=== PATIENT | male | born 1965 | race Caucasian/White ===

== ENCOUNTER 2017-06-22 14:05 | Emergency (ER) | payer SELFPAY ==
[2017-06-22 14:25] VITALS: TEMP 98.6
--- NOTE | 2017-06-22 15:14 | EDPHY ---
HPI/HX/ROS/PE/MDM Narrative: CHIEF COMPLAINT: Headache HPI: This patient is a 52 y/o male with history of hypertension, hyperlipidemia, and diabetes visiting from [facility] complaining of headache. Last Thursday, he had a headache while at work which resolved spontaneously but returned that evening and resolved after Advil. The following night, the headache returned and in the morning he noted blood in his right ear. He travelled by plane anyway and arrived Thursday night in [place]. He had a headache on the plane, relieved with Tylenol. Yesterday at 21:35 his headache returned more severely. It was primarily right sided with associated right eye pain. It felt "like something trying to break out of my head". He took Advil and paracetamol and after three hours, he was able to sleep. Today, he has had residual pulsing sensations in the right side of his head but feels well otherwise. He has never had similar headaches in the past. The patient had a fall while skiing several weeks ago, but denies any other recent trauma. He noted some visual changes following the including swimming objects but this resolved quickly. He denies numbness or tingling in his extremities. No fever, neck pain, chest pain, shortness of breath, or other associated symptoms. REVIEW OF SYSTEMS: Aside from elements discussed in the HPI, a comprehensive 10-point review of systems was reviewed and is negative. PMH: ADHD (Vyvanse) Hypertension. History of sleep apnea s/p surgical intervention. Psoriasis. Hyperlipidemia (Crestor). Diabetes (Metformin). Occasional Viagra use. FAMILY HISTORY: Brother of heart attack several years ago. 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 . Lives in [facility]. Originally [place]. PHYSICAL EXAM: General:Patient is alert, in no acute distress. ENT:Eyes are normal to inspection. Dried blood in right ear canal. TM appears intact. No pain. Neck: Normal inspection. Full range of motion. Respiratory:No respiratory distress. Breath sounds normal bilaterally. Cardiovascular: Regular rate and rhythm. Strong peripheral pulses. Normal cap refill. Abdomen:The abdomen is nontender to palpation. There are no peritoneal signs. There are normal bowel sounds. Back: Normal to inspection. No tenderness to palpation. Skin: Normal color. No rash. Warm and dry. Extremities: Normal appearance. Full range of motion. Neuro: Oriented x3. Normal motor function. Normal sensory function. ED Course: 52 y/o male presents with recurrent headaches over the past five days. He is neurologically intact on exam. Plan for CT head. IV established. Plan for labs including CBC, chemistries. Plan to administer 1L IV NS. 15:[address] Miranda, radiologist. CT head negative for acute processes. Reviewed laboratory studies. BGL mildly elevated. Patient has known DM type 2. Labs otherwise unremarkable. 16:45 Reassessed patient. I offered an MRI for further evaluation, but he declines as he is claustrophobic. He agrees to CTA. Plan to administer 30mg IV Toradol for symptom relief. 17:[address] Miranda, radiologist. CTA negative for acute processes. 17:45 Reassessed patient. Discussed imaging results. He is reassured that we do not find any acute intracranial processes on our studies today. Plan to discharge home in good condition. Follow up and return precautions discussed. He is comfortable with this plan. MDM: This patient arrives with unusual presentation of new intermittent unilateral headache with report of blood from his right ear. Ear exam reveals small clotted blood in the external auditory canal with a normal intact TM. The etiology of this and its relationship to the symptom of headache is unclear, as the patient reports no barotrauma or direct trauma, FB etc. Given normal intact TM with no blood behind it, this has to represent an external issue and I think it is likely incidental. New severe unilateral headache is obviously concerning for serious [place] [employer] process, but CTH is negative for tumor or bleed, and CTA was performed to assess for possible SAH/aneurysm. These studies are all normal. I recommended we proceed with MRI and/or LP, but patient declines both of these tests at this time. He is currently asymptomatic and has an entirely normal neuro exam. We agreed on a plan for short course of pain medication and follow-up with a neurologist when he returns home. He understands that etiology of his symptoms is unknown and we discussed strict return precautions. I considered cluster headache given unilateral nature of pain, but the timing of his headache is somewhat atypical for this disease. - Data Points Imaging Results: Imaging Impressions Head CT 06/22/17 15:14 Impression: No acute intracranial findings. If symptoms persist and clinical suspicion warrants, consider MRI. Findings discussed with Aki Mcmanus MD, on 06/22/2017 at 15:47. Head CTA 06/22/17 16:50 Impression: No acute vascular findings. Findings discussed with Aki Mcmanus M.D., on June 22, 2017 at 1736. Imaging: Discussed imaging studies w/ score caller Radiologist Laboratory Results: Laboratory Results 06/22/17 14:45 06/22/17 15:00 06/22/17 06/22/17 15:00 14:45 WBC 8.11 10^3/uL 10^3/uL (3.80-9.50) RBC 5.23 10^6/uL 10^6/uL (4.40-6.38) Hgb 16.7 g/dL g/dL (13.7-17.5) Hct 47.4 % % (40.0-51.0) MCV 90.6 fL fL (81.5-99.8) MCH 31.9 pg pg (27.9-34.1) MCHC 35.2 g/dL g/dL (32.4-36.7) RDW 12.4 % % (11.5-15.2) Plt Count 269 10^3/uL 10^3/uL (150-400) MPV 10.0 fL fL (8.7-11.7) Neut % (Auto) 65.3 % % (39.3-74.2) Lymph % (Auto) 26.5 % % (15.0-45.0) Pope % (Auto) 6.5 % % (4.5-13.0) Eos % (Auto) 0.6 % % (0.6-7.6) Baso % (Auto) 0.9 % % (0.3-1.7) Nucleat RBC Rel Count 0.0 % % (0.0-0.2) Absolute Neuts (auto) 5.29 10^3/uL 10^3/uL (1.70-6.50) Absolute Lymphs (auto) 2.15 10^3/uL 10^3/uL (1.00-3.00) Absolute Monos (auto) 0.53 10^3/uL 10^3/uL (0.30-0.80) Absolute Eos (auto) 0.05 10^3/uL 10^3/uL (0.03-0.40) Absolute Basos (auto) 0.07 10^3/uL 10^3/uL (0.02-0.10) Absolute Nucleated RBC 0.00 10^3/uL 10^3/uL (0-0.01) Immature Gran % 0.2 % % (0.0-1.1) Immature Gran # 0.02 10^3/uL 10^3/uL (0.00-0.10) Sodium 141 mEq/L mEq/L (135-145) Potassium 3.7 mEq/L mEq/L (3.5-5.2) Chloride 100 mEq/L mEq/L (97-110) Carbon Dioxide 29 mEq/l mEq/l (22-31) Anion Gap 12 mEq/L mEq/L (8-16) BUN 17 mg/dL mg/dL (7-23) Creatinine 0.9 mg/dL mg/dL (0.7-1.3) Estimated GFR > 60 Glucose 146 mg/dL H mg/dL (70-100) Calcium 9.5 mg/dL mg/dL (8.5-10.4) Medications Given: Discontinued Medications Sodium Chloride (Ns) 1,000 mls @ 0 mls/hr IV ONCE ONE PRN Reason: Wide Open Stop: 06/22/17 15:50 Last Admin: 06/22/17 15:49 Dose: 1,000 mls Ketorolac Tromethamine (Toradol) 30 mg IVP EDNOW ONE Stop: 06/22/17 16:52 Last Admin: 06/22/17 17:00 Dose: 30 mg Oxycodone/Acetaminophen (Percocet 5/325mg Prepack#4) 1 btl TAKEHOME EDNOW ONE Stop: 06/22/17 17:50 Last Admin: 06/22/17 18:05 Dose: 1 btl General Time Seen by Provider: 06/22/17 15:00 Initial Vital Signs: Initial Vital Signs Temperature (C) 37 C 06/22/17 14:21 Heart Rate 75 06/22/17 14:21 Respiratory Rate 18 06/22/17 14:21 Blood Pressure 131/95 H 06/22/17 14:21 O2 Sat (%) 93 06/22/17 14:21 O2 Delivery Mode Room Air Allergies/Adverse Reactions: No Known Allergies Allergy (Unverified 06/22/17 14:19) Home Medications: Medication Instructions Recorded Crestor 06/22/17 Otezla 06/22/17 VYVANSE 06/22/17 Voltaren 06/22/17 metFORMIN HCL 06/22/17 oxyCODONE/APAP 5/325 [Percocet 1 - 2 tab PO Q4H PRN #10 tab 06/22/17 5/325 (*)] traZODone 06/22/17 Departure - Departure Disposition: Home, Routine, Self-Care Clinical Impression: Headache Condition: Good Instructions: Oxycodone/Acetaminophen (By mouth), Acute Headache (ED) Additional Instructions: Follow-up with your primary care physician within 72 hours. Return to the emergency department immediately for recurrence of headache, nausea, vomiting, numbness, weakness, neck pain, fever or other concerns. Use Tylenol and/or ibuprofen as directed. Referrals: Khari Vasquez DO [Medical Doctor] - As per Instructions Brandon Westbrook MD [Medical Doctor] - As per Instructions Prescriptions: oxyCODONE/APAP 5/325 [Percocet 5/325 (*)] 1 - 2 tab PO Q4H PRN #10 tab PRN Reason: Pain, Severe Report Scribed for: Aki Mcmanus Report Scribed by: Elizabeth Javier Date of Report: 06/22/17 Time of Report: 15:27 Physician Review and Approval Statement: Portions of this note were transcribed by an ED scribe. I personally performed the history, physical exam, and medical decision making; and confirm the accuracy of the information in the transcribed note.
[2017-06-22] MEDS ORDERED: NS 1,000 ML IV ONE (15:49)
[2017-06-22 16:20] LABS: PLATELET COUNT 269 10^3/uL (150-400)
[2017-06-22] MEDS ORDERED: KETOROLAC 30 MG/1 ML SDV IVP ONE (16:51)
[2017-06-22] MEDS ORDERED: IOPAMIDOL (ISOVUE 370) 100 ML BTL IV ONE (16:53)
[2017-06-22 17:00] VITALS: RESP 16
[2017-06-22] MEDS ORDERED: OXYCODONE/APAP 5/325MG PREPACK#4 BTL TAKEHOME ONE (17:49)
[2017-06-22 18:10] VITALS: BP 147/85; PULSE 72; O2SAT 95
== END 2017-06-22 18:16 | disposition home or self-care (01) ==
DX: R51 Headache (principal); I10 Essential (primary) hypertension; E11.9 Type 2 diabetes mellitus without complications; Z79.84 Long term (current) use of oral hypoglycemic drugs
CPT/HCPCS: 96374; J1885; Q9967